=== PATIENT | male | born 1975 | race Hispanic/Latino ===

== ENCOUNTER 2021-09-06 15:53 | Emergency (ER) | payer BC, SELFPAY ==
[2021-09-06 16:03] VITALS: BP 140/87; PULSE 82; RESP 16; TEMP 36.8; O2SAT 99
--- NOTE | 2021-09-06 16:19 | ED.GENADULT ---
HPI - General Adult General Chief complaint: Dental/Oral Stated complaint: Fungus on Tongue Time Seen by Provider: 09/06/21 16:06 Source: patient Mode of arrival: ambulatory Limitations: no limitations History of Present Illness HPI narrative: Patient presents today stating he has fungus on his tongue x1 month with a white coating. Also reports some irritation to the tongue. He googled his symptoms and believes he has a fungus on his tongue. He has tried coconut oil for several days without relief of symptoms. Denies recent illness. Related Data Allergies Allergy/AdvReac Type Severity Reaction Status Date / Time No Known Allergies Allergy Verified 09/06/21 16:01 Review of Systems Review of Systems: CONSTITUTIONAL: Denies body aches, fever, chills, or sweats. EYES: Denies visual changes, redness, or discharge. ENT: Denies rhinorrhea, congestion, sore throat, or otalgia.+ Tongue irritation and coating CARDIOVASCULAR: Denies chest pain, palpitations, or edema. RESPIRATORY: Denies cough or dyspnea. GASTROINTESTINAL: Denies abdominal pain, nausea, vomiting, or diarrhea. GENITOURINARY: Denies dysuria or hematuria. SKIN: Denies rash, itching, or wounds. MUSCULOSKELETAL: Denies back pain, joint pain, or myalgia. NEUROLOGIC: Denies headache, numbness, tingling, or weakness. PSYCH: Denies depression or anxiety. PMFSH Comments at time of signature, I have reviewed and agree with nursing past medical, surgical, social and family history unless otherwise noted. Please see nursing chart for further information. There is no relevant family history pertinent to the presenting complaint Exam Narrative: GENERAL: Well-appearing, well-nourished, and in no acute distress. HEAD: Normocephalic, atraumatic. EYES: EOMI. No redness or drainage. Conjunctivae normal. ENT: Mucous membranes pink and moist. Throat normal. Uvula midline. + Tongue appears normal with prominent papillae posteriorly. No white coating. NECK: Normal AROM. CHEST: No respiratory distress. EXTREMITIES: Normal range of motion. No edema. SKIN: Warm, dry, no rash. Capillary refill normal. Normal skin turgor. NEURO: No focal deficits. Alert and oriented x3. Gait steady. PSYCH: Normal affect. No signs of depression or anxiety. Course Course Emergency Course: Discussed with patient that I do not visualize any white coating, erythema, or any other abnormalities of his tongue. Patient is convinced that he has fungus on his tongue after his Google search. We agreed to try some nystatin to see if this helps with his irritation, but instructed him that he needs to follow-up with his PCP if his symptoms persist. Level of Care: Express Care Visit Vital Signs Vital signs: Vital Signs Temperature 98.2 F 09/06/21 16:03 Pulse Rate 82 09/06/21 16:03 Respiratory Rate 16 09/06/21 16:03 Blood Pressure 140/87 09/06/21 16:03 Pulse Oximetry 99 09/06/21 16:03 Oxygen Delivery Room Air 09/06/21 16:03 Temperature 98.2 F 09/06/21 16:03 Pulse Rate 82 09/06/21 16:03 Respiratory Rate 16 09/06/21 16:03 Blood Pressure 140/87 09/06/21 16:03 Pulse Oximetry 99 09/06/21 16:03 Oxygen Delivery Room Air 09/06/21 16:03 Medical Decision Making Differential Diagnosis Differential Diagnosis: thrush, leukoplakia, geographic tongue, glossitis, aphthous ulcer Vital Signs Vital Signs: Vital Signs Temperature 98.2 F 09/06/21 16:03 Pulse Rate 82 09/06/21 16:03 Respiratory Rate 16 09/06/21 16:03 Blood Pressure 140/87 09/06/21 16:03 Pulse Oximetry 99 09/06/21 16:03 Oxygen Delivery Room Air 09/06/21 16:03 Temperature 98.2 F 09/06/21 16:03 Pulse Rate 82 09/06/21 16:03 Respiratory Rate 16 09/06/21 16:03 Blood Pressure 140/87 09/06/21 16:03 Pulse Oximetry 99 09/06/21 16:03 Oxygen Delivery Room Air 09/06/21 16:03 Critical Care Time Critical Care Time Critical Care Time: No Discharge Plan Discha
== END 2021-09-06 16:28 | disposition home or self-care (01) ==
PROVIDERS: Emergency Provider Nurse Practitioner
DX: K14.6 Glossodynia (principal)
CPT/HCPCS: 99213; G0463

== ENCOUNTER 2022-10-27 18:07 | Emergency (ER) | payer OTHER, SELFPAY ==
[2022-10-27 19:00] VITALS: BP 167/90; RESP 16; TEMP 36.8; O2SAT 100
--- NOTE | 2022-10-27 19:39 | ED.URI ---
HPI - URI/Sore Throat General Chief Complaint: Upper Respiratory Infection Stated Complaint: runny nose, cough,hard to take a breath Time Seen by Provider: 10/27/22 19:40 Source: patient Mode of arrival: ambulatory Limitations: no limitations History of Present Illness HPI Narrative: 47-year-old male presents with complaint, nasal congestion, sinus pressure, runny nose, postnasal drainage, sore throat for the past month. Reports that symptoms are intermittent, worse when he is at work. Patient not taking any [id number] medications to treat his symptoms. 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 Has not discussed this with his primary care physician. Does report over the last several days I feel like I am not getting enough air . Denies chest pain and shortness of breath. All systems reviewed and negative except as noted above. Related Data Home Medications Medication Instructions Recorded Confirmed metoprolol succinate 50 mg mg PO 10/27/22 tablet,extended release 24 hr Allergies Allergy/AdvReac Type Severity Reaction Status Date / Time No Known Allergies Allergy Verified 09/06/21 16:01 Review of Systems Review of Systems: CONSTITUTIONAL: Denies fever, chills, or sweats. EYES: Denies visual changes, redness, or discharge. ENT: Reports rhinorrhea, congestion, sore throat. Denies otalgia. CARDIOVASCULAR: Denies chest pain, palpitations, or edema. RESPIRATORY: reports cough. Denies dyspnea. GASTROINTESTINAL: Denies abdominal pain, nausea, vomiting, or diarrhea. GENITOURINARY: Denies dysuria or hematuria. SKIN: Denies rash or itching. MUSCULOSKELETAL: Denies back pain, joint pain, or myalgia. NEUROLOGIC: Denies headache, numbness, or weakness. PSYCHIATRIC: Denies anxiety or depression. All other systems reviewed are negative, except as documented in HPI. PMFSH Comments At time of signature, agree with nursing past medical, surgical, social and family history. There is no relevant family history pertinent to the presenting complaint. Exam Narrative: GENERAL: This is a well-nourished, well-developed patient, in no apparent distress. HEAD: normocephalic, atraumatic. EYES: PERRL. Sclera clear/white. Vision is grossly intact. EARS: External ears normal, auditory canals clear and without drainage, fluid bilateral TMs without erythema. Dull light reflex. NOSE: External nose normal with Clear nasal drainage, erythema and swelling to bilateral nares. THROAT: Mucous membranes moist, Erythema to posterior pharynx with postnasal drainage. NECK: Neck supple, non-tender without lymphadenopathy, masses or thyromegaly. CARDIOVASCULAR: Regular rate and rhythm without murmurs, gallops, or rubs. RESPIRATORY: Clear to auscultation. Breath sounds equal bilaterally. No wheezes, rales, or rhonchi. SKIN: warm, Dry, intact with no suspicious lesions or rash, good texture and turgor. NEURO: awake, alert, and oriented to person, place and time. There were no obvious focal neurologic abnormalities. EXTREMITIES: No joint tenderness, effusion, or edema noted. Course Course Level of Care: Express Care Visit Vital Signs Vital signs: Vital Signs Temperature 36.8 C 10/27/22 19:00 Respiratory Rate 16 10/27/22 19:00 Blood Pressure 167/90 H 10/27/22 19:00 Pulse Oximetry 100 10/27/22 19:00 Oxygen Delivery Room Air 10/27/22 19:00 Temperature 36.8 C 10/27/22 19:00 Respiratory Rate 16 10/27/22 19:00 Blood Pressure 167/90 H 10/27/22 19:00 Pulse Oximetry 100 10/27/22 19:00 Oxygen Delivery Room Air 10/27/22 19:00 Reviewed MDM - URI/Sore Throat MDM Narrative Medical decision making narrative: will treat patient with antibiotic due to duration of symptoms, exam findings. Will start patient on allergy medications. Recommend follow-up with his primary care physician for further allergy testing. Patient is aware of diagnosis, understands and ag
== END 2022-10-27 20:10 | disposition home or self-care (01) ==
PROVIDERS: Emergency Provider Nurse Practitioner Family
DX: J01.90 Acute sinusitis, unspecified (principal); J30.9 Allergic rhinitis, unspecified
CPT/HCPCS: 99213; G0463

== ENCOUNTER 2023-07-07 13:27 | Emergency (ER) | payer OTHER, SELFPAY ==
[2023-07-07 13:37] VITALS: BP 144/99; PULSE 97; RESP 16; TEMP 37.4; O2SAT 98
--- NOTE | 2023-07-07 14:05 | ED.NAVMDI ---
HPI - Nausea/Vomiting/Diarrhea General Chief complaint: Nausea/Vomiting/Diarrhea Stated complaint: stomache issue,diarrhea Time Seen by Provider: 07/07/23 13:50 Source: patient and RN notes reviewed Mode of arrival: ambulatory Limitations: no limitations History of Present Illness HPI Narrative: Patient presents today complaining of a 6 day history of intermittent epigastric abdominal discomfort as well as soft stools up to 4 times per day. Denies blood in the stool. Denies fever, vomiting. He does report some mild nausea this morning for which he took Pepto-Bismol the did provide some relief. Reports history of gastritis for which he was treated by his PCP with unknown medications. States he has been eating some spicy foods recently and believes this may have exacerbated his symptoms. Related Data Home Medications Medication Instructions Recorded Confirmed metoprolol succinate 50 mg mg PO 10/27/22 tablet,extended release 24 hr Allergies Allergy/AdvReac Type Severity Reaction Status Date / Time No Known Allergies Allergy Verified 07/07/23 13:49 Review of Systems Review of Systems: CONSTITUTIONAL: Denies body aches, fever, chills, or sweats. EYES: Denies visual changes, redness, or discharge. ENT: Denies rhinorrhea, congestion, sore throat, or otalgia. CARDIOVASCULAR: Denies chest pain, palpitations, or edema. RESPIRATORY: Denies cough or dyspnea. GASTROINTESTINAL: Denies vomiting, or diarrhea.+ abdominal pain, nausea, soft stool GENITOURINARY: Denies dysuria or hematuria. SKIN: Denies rash, itching, or wounds. MUSCULOSKELETAL: Denies back pain, joint pain, or myalgia. NEUROLOGIC: Denies headache, numbness, tingling, or weakness. PSYCH: Denies depression or anxiety. [facility] Past Medical History Medical History (Updated 07/07/23 @ 15:42 by Lisa Corley, [employer], ) Hypertension Comments At time of signature, I have reviewed and agree with nursing past medical, surgical, social and family history unless otherwise noted. Please see nursing chart for further information. There is no relevant family history pertinent to the presenting complaint Exam Narrative: GENERAL: Well-appearing, well-nourished, and in no acute distress. HEAD: Normocephalic, atraumatic. EYES: EOMI. No redness or drainage. Conjunctivae normal. ENT: Mucous membranes pink and moist. NECK: Normal AROM. CHEST: No respiratory distress. Clear to auscultation. HEART: Regular rate and rhythm. No murmur appreciated. Normal peripheral pulses. ABDOMEN: Soft, nondistended, normal active bowel sounds. Mildly tender epigastrium without rebound or guarding. No tenderness at McBurney's point. Negative Gutierrez's sign EXTREMITIES: Normal range of motion. No edema. SKIN: Warm, dry, no rash. Capillary refill normal. Normal skin turgor. NEURO: No focal deficits. Alert and oriented x3. Gait steady. PSYCH: Normal affect. No signs of depression or anxiety. Course Course Level of Care: Express Care Visit Vital Signs Vital signs: Vital Signs Temperature 99.4 F 07/07/23 13:37 Pulse Rate 97 07/07/23 13:37 Respiratory Rate 16 07/07/23 13:37 Blood Pressure 144/99 H 07/07/23 13:37 Pulse Oximetry 98 07/07/23 13:37 Oxygen Delivery Room Air 07/07/23 13:37 Temperature 99.4 F 07/07/23 13:37 Pulse Rate 97 07/07/23 13:37 Respiratory Rate 16 07/07/23 13:37 Blood Pressure 144/99 H 07/07/23 13:37 Pulse Oximetry 98 07/07/23 13:37 Oxygen Delivery Room Air 07/07/23 13:37 Reviewed MDM - Nausea/Vomiting/Diarrhea MDM Narrative Medical decision making narrative: Patient will be treated with omeprazole and Imodium. Instructed to take Imodium only if necessary. Recommend making an appointment with a PCP for follow-up. Patient agrees with plan. Anticipatory guidance given. Differential Diagnosis Differential diagnosis: Likely food poisoning, gastroenteritis, dehydration and other (Gastritis, GERD, coli
== END 2023-07-07 14:20 | disposition home or self-care (01) ==
PROVIDERS: Emergency Provider Nurse Practitioner
DX: K21.9 Gastro-esophageal reflux disease without esophagitis (principal); R19.7 Diarrhea, unspecified; I10 Essential (primary) hypertension
CPT/HCPCS: 99213; G0463